=== PATIENT | female | born 1945 | race Caucasian/White ===

== ENCOUNTER → 2017-07-31 | Outpatient (CLI) | payer MEDICARE, OTHER ==
--- NOTE | 2017-07-31 15:31 | RADRPT ---
PROCEDURE: XR Right Shoulder. CLINICAL INDICATION: Right shoulder pain. TECHNIQUE: 3 views. Frontal internal rotation and frontal external rotation. Scapular Y-view. COMPARISON: No prior study is available for comparison. FINDINGS: There is no fracture or dislocation. The soft tissues are normal. Articular surfaces are intact. There is no lytic or blastic lesion. Surgical clips are present in the right axilla. IMPRESSION: 1. Surgical clips in the right axilla. 2. Otherwise unremarkable images of the right shoulder. RPTAT: QQ .Georges Shah MD, MD Date Time Electronically viewed and signed by .Georges Shah MD, on 07/31/2017 15:31 .R/
== END | disposition home or self-care (01) ==
LOC: RAD 14:07
PROVIDERS: ATTEND Specialist
DX: M25.511 Pain in right shoulder (principal)

== ENCOUNTER → 2017-10-20 | Outpatient (CLI) | END | disposition home or self-care (01) ==

== ENCOUNTER → 2017-11-20 | Outpatient (CLI) | END | disposition home or self-care (01) ==

== ENCOUNTER → 2018-01-18 | Outpatient (CLI) | END | disposition home or self-care (01) ==